=== PATIENT | female | born 1980 | race Caucasian/White ===

== ENCOUNTER 2018-12-05 17:55 | Emergency (ER) | payer OTHER ==
[~2018-12-05] VITALS: Ht 167.6 cm; Wt 126.1 kg
[~2018-12-05 17:55] MED LIST: CIPROFLOXACIN500 MG PO; DIFLUCAN100 MG PO; MACROBID100 M1 PO; PYRIDIUM200 MG PO
== END 2018-12-05 19:43 | disposition home or self-care (01) ==
LOC: ED 17:55
DX: J06.9 Acute upper respiratory infection, unspecified (principal); Z88.2 Allergy status to sulfonamides; Z88.1 Allergy status to other antibiotic agents; Z88.6 Allergy status to analgesic agent; Z91.040 Latex allergy status